=== PATIENT | male | born 2000 | race Caucasian/White ===

== ENCOUNTER 2025-05-04 16:16 | Emergency (ER) | payer BC, SELFPAY ==
[2025-05-04 16:22] VITALS: BP 145/66
--- NOTE | 2025-05-04 16:42 | ED.GENMED ---
History of Present Illness
General
Chief Complaint: Skin Surface Trauma
Source: patient
Time Seen by Provider: 05/04/25 16:28
History of Present Illness
History of Present Illness:
25-year-old male presenting to the emergency department for evaluation after sustaining laceration at the base of the right thumb while cutting up an avocado, no other injury sustained, tetanus vaccine is up-to-date.
Past History
Past History
ED Past Medical History: Valvular disease
ED Past Surgical History: Cardiac
Social History
Tobacco: Non-smoker
Alcohol: Occasional
Drug: None
Personal: Single
Living: with family
Employment: Employed
Review of Systems
Review of Systems
All Other Systems: ROS reviewed and negative except as documented in HPI and ROS
Phy Exam
Physical Exam
Physical Exam:
GENERAL: Alert , in no apparent distress
EYE: conjunctiva clear
Head: Normocephalic atraumatic
NECK: Supple,
ENT: mmm.
LUNGS: no acute respiratory distress
NEUROLOGICAL: Alert and oriented
SKIN: Warm and dry, 1 cm horizontally oriented superficial laceration at the base of the right thumb along the palmar surface. No active bleeding.
MUSCULOSKELETAL: well perfused. Full range of motion of all digits including the thumb, no sensory deficits.
PSYCH: Normal and appropriate interaction.
Scores
Heart Failure Risk
Heart Failure Risk Score: Not Applicable
Heart Score for Chest Pain Patients
STEMI patient?: Not applicable
Withdrawal Assessment of Alcohol
Withdrawal Assessment Completed?: Not applicable
Course
Vital Signs
Initial and Last Documented VS:
Initial Vital Signs
Temp Pulse Resp BP Pulse Ox
98.8 F 79 17 145/66 99
05/04/25 16:22 05/04/25 16:22 05/04/25 16:22 05/04/25 16:22 05/04/25 16:22
Last Documented Vital Signs
Temp Pulse Resp BP Pulse Ox
98.8 F 79 17 145/66 99
05/04/25 16:22 05/04/25 16:22 05/04/25 16:22 05/04/25 16:22 05/04/25 16:43
Procedures
Laceration Closure
Right Thumb:
Status of Wound: clean
Size of Wound in cm: 1
Description of Wound Edges: sharp
Preparation: cleaned with saline
Skin Closure Material: 5-0 nylon
Number of sutures: 3
Additional information:
Patient declined anesthesia
MDM/Problems Addressed
MDM/Problems Addressed:
25-year-old male presenting to the emergency department for evaluation of a laceration to the right thumb without any other injuries noted. Laceration repaired as above without difficulty. Patient was advised on wound care. Aware of return
precautions to the ER.
*Pulse Oximetry
SaO2: 99
Oxygen Mode of Delivery: Room air
Patient hypoxic: no
*Critical Care Note
Total Time (30-74mins, 75-104mins- exclusive of procedures): Not Applicable
ED Attending Note
-
Portions of this chart may have been created with voice recognition software.� Occasional wrong word or��sound alike� substitutions may have occurred due to the inherent limitations of voice recognition software.
Discharge Plan
Departure
Patient Disposition: Home (Routine Discharge)
Date of Disposition: 05/04/25
Time of Disposition: 16:42
Patient with high blood pressure during this ER visit?: Yes
Discharge Problem:
Laceration of right thumb
Instructions: Laceration Repair With Stitches (DC)
Interventions
Interventions:
*Risk Screen - Suicide Last Done: 05/04/25 16:23
*General Assessment Last Done: 05/04/25 16:23
*Neglect/Abuse Screening Last Done: 05/04/25 16:23
*ED COVID-19 Vaccine History Last Done: 05/04/25 16:23
*ED Influenza Vaccine History Last Done: 05/04/25 16:23
Discharge Date and Time
Print Language: RUSSIAN
== END 2025-05-04 17:02 | disposition home or self-care (01) ==
LOC: EMR 16:16
PROVIDERS: EMERGENCY PHYSICIAN Emergency Medicine; FAMILY PHYSICIAN Family Medicine
DX: S61.011A Laceration without foreign body of right thumb without damage to nail, initial encounter (principal); W45.8XXA Other foreign body or object entering through skin, initial encounter; Y93.G1 Activity, food preparation and clean up
CPT/HCPCS: 99282; 12001